=== PATIENT | female | born 1995 | race Caucasian/White ===

== ENCOUNTER 2022-06-04 14:06 | Emergency (ER) | payer MEDICAID ==
[~2022-06-04] VITALS: Ht 165.1 cm; Wt 113.6 kg
[2022-06-04] MEDS ORDERED: IBUPROFEN 600 MG TABLET PO ONE (16:00)
[2022-06-04] MEDS ORDERED: IBUP-2070 PO (16:25)
[2022-06-04 16:35] VITALS: BP 120/78
== END 2022-06-04 16:36 | disposition home or self-care (01) ==
LOC: EMS 14:08
DX: S63.502A Unspecified sprain of left wrist, initial encounter (principal); S20.01XA Contusion of right breast, initial encounter; M25.511 Pain in right shoulder; M54.2 Cervicalgia; F12.90 Cannabis use, unspecified, uncomplicated; Z86.2 Personal history of diseases of the blood and blood-forming organs and certain disorders involving the immune mechanism; Z88.0 Allergy status to penicillin; Z88.6 Allergy status to analgesic agent; Z91.040 Latex allergy status; Z91.010 Allergy to peanuts; V89.2XXA Person injured in unspecified motor-vehicle accident, traffic, initial encounter; Y93.89 Activity, other specified; Y92.411 Interstate highway as the place of occurrence of the external cause; Y99.8 Other external cause status
CPT/HCPCS: 99283